=== PATIENT | female | born 1960 | race Caucasian/White ===

== ENCOUNTER → 2018-04-16 | Outpatient (CLI) | payer BC, OTHER ==
--- NOTE | 2018-04-16 11:27 | MRI ---
EXAM DESCRIPTION: Cervical Spine CLINICAL HISTORY: M54.5 COMPARISON: None Available. TECHNIQUE: MRI of the cervical spine is performed according to our usual protocol. FINDINGS: Sagittal T2 images reveal decreased signal intensity within the intervertebral discs consistent with disc desiccation. Normal T2 appearance of the cervical cord. Posterior discal abnormalities appearing mild at the C4-5 through C6-7 levels. Sagittal T1 images show benign marrow signal characteristics. Normal T1 appearance of the cervical and upper thoracic spinal cord. Normal alignment of the vertebral bodies and facets. Sagittal STIR images are negative for high signal intensity marrow edema within the vertebral bodies or posterior elements. No paraspinous fluid collection or cystic lesion. Axial images were obtained to evaluate the disc levels. C2-3: Normal posterior disc margin with no spinal stenosis or neural foraminal narrowing. Facets appear normal. Normal appearance of the cord at this level. C3-4: Normal posterior disc margin with no spinal stenosis or neural foraminal narrowing. Facet degenerative changes are moderate on the right and minimal on the left. Normal appearance of the cord at this level. C4-5: No significant bulging of the posterior disc margin with no spinal stenosis or neural foraminal narrowing. Mild facet degenerative changes. Normal appearance of the cord at this level. C5-6: Minimal bulge with no spinal stenosis or neural foraminal narrowing. Facet hypertrophic changes are mild. Normal appearance of the cord at this level. C6-7: Minimal diffuse posterior annular bulge without spinal stenosis or neural foraminal narrowing. Mild facet degenerative changes on the left. Normal appearance of the cord at this level. C7-T1: Normal posterior disc margin with no spinal stenosis or neural foraminal narrowing. Facets appear normal. Normal appearance of the cord at this level. IMPRESSION: Minimal posterior annular bulges at four five through C6-7. Negative for acute appearing disc herniation or spinal stenosis. Electronically signed by: Christos Wolf MD 04/16/2018 11:26 AM CDT
--- NOTE | 2018-04-16 11:35 | MRI ---
EXAM DESCRIPTION: Lumbar Spine w/o Contrast CLINICAL HISTORY: M54.5 COMPARISON: None Available. TECHNIQUE: MRI of the lumbar spine is performed according to our usual protocol with axial and sagittal multi sequence imaging. FINDINGS: Sagittal T2 images reveal decreased signal intensity consistent with desiccation of the intervertebral discs at L5-S1. Mild posterior annular bulge or protrusion is also present at this level. No prevertebral mass or aneurysm. Lower cord and conus appear normal. Tip of the conus is behind L1-L2. Sagittal T1 images reveal benign marrow signal characteristics. Normal T1 signal intensity and appearance of the lower cord and conus. Sagittal STIR images are negative for marrow edema within the vertebral bodies or posterior elements. No paraspinous fluid collection or cystic lesion. Axial T1 and T2-weighted images were obtained to evaluate the disc levels. T12-L1: No posterior annular bulge or herniation. No spinal stenosis or neural foraminal narrowing. Facets appear normal. Normal appearance of the lower cord and conus. L1-2: No posterior annular bulge or herniation. No spinal stenosis or neural foraminal narrowing. Mild facet hypertrophic changes. L2-3: No posterior annular bulge or herniation. No spinal stenosis or neural foraminal narrowing. Facets appear normal. L3-4: No posterior annular bulge or herniation. No spinal stenosis or neural foraminal narrowing. Facets appear normal. L4-5: No posterior annular bulge or herniation. No spinal stenosis or neural foraminal narrowing. Mild facet hypertrophic changes are present with ligamentum flavum thickening. No significant subarticular recess or lateral recess compromise. L5-S1: Broad-based midline protrusion is seen extending inferiorly behind the upper endplate of S1. This measures 5 mm in AP dimension and approximately 1.4 cm in mediolateral width. On the sagittal images, this extends approximately 4 mm inferiorly behind upper S1. No impingement upon the S1 nerve roots. No subarticular recess or lateral recess compromise. Neural foramina are widely patent. There is moderate facet and ligamentum flavum hypertrophy. Sacrum appears intact. No retroperitoneal mass or aneurysm. Question large upper pole right renal cyst. IMPRESSION: Midline disc protrusion measuring 5 mm at L5-S1. Electronically signed by: Christos Wolf MD 04/16/2018 11:33 AM CDT
== END ==
LOC: MRI 09:42
PROVIDERS: ATTEND Family Medicine
DX: M51.27 Other intervertebral disc displacement, lumbosacral region (principal); M50.90 Cervical disc disorder, unspecified, unspecified cervical region